=== PATIENT | male | born 1985 | race Caucasian/White ===

== ENCOUNTER 2018-01-25 19:19 | Emergency (ER) | payer MEDICAID, OTHER ==
[2018-01-25] MEDS: CEFTRIAXONE 1 GM INJ IM (21:20)
== END 2018-01-25 21:29 | disposition home or self-care (01) ==
LOC: FTE 19:19
DX: N50.9 Disorder of male genital organs, unspecified (principal)
CPT/HCPCS: 96372; 99284-25